=== PATIENT | female | born 1960 | race Caucasian/White ===

== ENCOUNTER 2017-10-10 07:56 | Emergency (ER) | payer OTHER ==
[2017-10-10] MEDS: KETOROLAC 30 MG INJ IM (08:54)
[2017-10-10 08:57] LABS: URINE BLOOD (Dip) POC Negative (NEGATIVE); URINE GLUCOSE (Dip) POC Negative (NEGATIVE); URINE KETONES (Dip) POC Negative (NEGATIVE); URINE LEUKOCYTE EST (Dip) POC Negative (NEGATIVE); URINE NITRITE (Dip) POC Negative (NEGATIVE); URINE TOTAL PROTEIN POC Negative (NEGATIVE)
[2017-10-10 08:57] LABS: URINE PH (Dip) POC 5.5 (5.0-8.5)
== END 2017-10-10 09:49 | disposition home or self-care (01) ==
LOC: FTE 07:56
DX: M54.42 Lumbago with sciatica, left side (principal); G89.29 Other chronic pain; M25.552 Pain in left hip
CPT/HCPCS: 73510; 81003; 96372; 99284-25